=== PATIENT | female | born 1960 | race Caucasian/White ===

== ENCOUNTER 2024-10-25 10:07 | Emergency (ER) | payer OTHER | END 2024-10-25 11:25 | disposition home or self-care (01) | LOC: CC.ED 10:07 | DX: S93.602A Unspecified sprain of left foot, initial encounter (principal); Z79.899 Other long term (current) drug therapy; Z88.8 Allergy status to other drugs, medicaments and biological substances; Z88.2 Allergy status to sulfonamides; Z90.710 Acquired absence of both cervix and uterus; W54.1XXA Struck by dog, initial encounter | CPT/HCPCS: 73610-LT; 73630-LT; 99283 ==